=== PATIENT | female | born 1970 | race Caucasian/White ===

== ENCOUNTER 2019-11-09 12:03 | Emergency (ER) | payer OTHER, SELFPAY ==
--- NOTE | ~2019-11-09 | XR_ITS ---
XR chest 2V 11/09/2019 12:38 Indication: Chest pain Procedure: PA and lateral views of the chest Comparison: No prior studies for comparison. Findings: Left basilar atelectasis. Heart size normal. No focal pneumonia, edema, pleural effusion or pneumothorax. No acute osseous abnormality. Impression: 1: Left basilar atelectasis. Reviewed, dictated and finalized at location A. PHYSICIAN Impression: 1: Left basilar atelectasis.
--- NOTE | ~2019-11-09 | XR_ITS ---
XR hand LT min 3V 11/09/2019 12:38 INDICATION: Left hand pain PROCEDURE: 3 views left hand COMPARISON: No prior studies for comparison. FINDINGS: Fracture, dislocation or subluxation is not identified. The soft tissues appear within norm al limits. No foreign bodies are identified. IMPRESSION: 1: NO ACUTE BONE OR JOINT ABNORMALITY IDENTIFIED. Reviewed, dictated and finalized at location A. GING JEWELER
--- NOTE | 2019-11-09 12:08 | ECG_ITS ---
Measurements Intervals [place] Rate: 81 P: 14 MI: 148 QRS: -28 QRSD: 110 T: 43 QT: 388 QTc: 451 Interpretive Statements SINUS RHYTHM CANNOT RULE OUT SEPTAL INFARCT, AGE INDETERMINATE BORDERLINE T WAVE ABNORMALITY- INFERIOR LEADS BASELINE ARTIFACT- I, II, III, AVR, AVL, AVF, V1-V2 ABNORMAL ECG Electronically Signed On 11-09-2019 14:22:06 RESIDENTIAL PROGRAM MANAGER by Chas Dean D.O.
[2019-11-09 12:09] VITALS: BP 130/96; PULSE 79; RESP 18; TEMP 36.8; O2SAT 94
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
[2019-11-09 13:17] LABS: Basophils Percent Auto 0.6 % (0.2-1.2); Eosinophils Absolute Auto 0.1 K/mm3 (0-0.3); Eosinophils Percent Auto 2.5 % (0-4.4); Hemoglobin 14.6 g/dL (12.0-15.0); Immature Granulocyte Absolute 0.01 K/mm3 (0.00-0.031); Immature Granulocyte Percent A 0.2 % (0-0.5); Lymphocytes Absolute Auto 1.48 K/mm3 (0.9-3.2); Lymphocytes Percent Auto 27.9 % (18.3-44.2); Mean Corpuscular HGB Conc 32.4 g/dl (32-36); Mean Corpuscular Hemoglobin 30.7 pg (26-34); Mean Corpuscular Volume 94.5 fl (80-100); Mean Platelet Volume 11.5 fl (7.4-10.4); Monocytes Absolute Auto 0.5 K/mm3 (0.1-0.6); Monocytes Percent Auto 10.2 % (2.6-8.5); Neutrophils Absolute Auto 3.1 K/mm3 (1.3-6.7); Neutrophils Percent Auto 58.6 % (45.5-73.1); Platelet Count Result 281 k/mm3 (150-375); Red Blood Count 4.76 M/mm3 (4.2-5.4); Red Cell Distribution Width 12.9 % (11.5-14.5); White Blood Count 5.3 K/mm3 (4.5-10.0)
[2019-11-09 13:26] LABS: INR 0.9; Partial Thromboplastin Time 22.4 SECONDS (22.3-36.8); Prothrombin Time 12.1 Seconds (11.1-14.7)
[2019-11-09 13:28] LABS: Blood Urea Nitrogen 14 mg/dL (7-17); Carbon Dioxide 26 mmol/L (22-30); Chloride 99 mmol/L (98-107); Estimated CRCL calculation 105 ml/min; Estimated Glomerular Filt Rate > 60; Glucose 106 mg/dL (65-105); Potassium 3.4 mmol/L (3.4-5.0); Sodium 138 mmol/L (137-145)
[2019-11-09 13:40] LABS: Troponin I < 0.012 ng/mL (0.000-0.034)
[2019-11-09] MEDS: SODIUM CHLORIDE 0.9% IV 1,000 ML 999 ML IV CONT (14:22)
[2019-11-09 14:46] VITALS: BP 136/90; PULSE 61; RESP 16; O2SAT 98
[2019-11-09 15:52] LABS: Add Urine Microscopic? YES; Appearance Urine Cloudy (Clear); Bacteria Urine Trace /hpf; Bilirubin Urine Negative (Negative); Blood Urine Negative (Negative); Color Urine Amber (Yellow); Glucose Urine UA Negative (Negative); Hyaline Casts Urine 20-29 /lpf; Ketones Urine Trace mg/dL (Negative); Leukocyte Esterase Ur Negative LEU/UL (Negative); Mucus Urine Heavy /lpf; Nitrate Urine Negative (Negative); Protein Urine 2+ mg/dL (Negative); Squamous Epithelial Cell Urine Many /hpf (Few); WBC Urine 16-20 /hpf
[2019-11-09 16:22] LABS: Specific Grav Ur 1.034 (1.001-1.035)
[2019-11-09 16:28] LABS: Troponin I < 0.012 ng/mL (0.000-0.034)
[2019-11-09 16:58] VITALS: BP 121/79; PULSE 58; RESP 16; O2SAT 98
[2019-11-09 17:10] VITALS: BP 117/74; PULSE 62; RESP 16; O2SAT 100
== END 2019-11-09 17:42 | disposition home or self-care (01) ==
PROVIDERS: Emergency Medicine; Emergency Provider Emergency Medicine
DX: J06.9 Acute upper respiratory infection, unspecified (principal); R07.2 Precordial pain; N39.0 Urinary tract infection, site not specified; S60.022A Contusion of left index finger without damage to nail, initial encounter; Y08.89XA Assault by other specified means, initial encounter
CPT/HCPCS: 36415; 71046; 73130; 80048; 81001; 84484; 85025; 85610; 85730; 87086; 87088; 93005; 99284; J7030

== ENCOUNTER 2021-01-17 03:00 | Emergency (ER) | payer OTHER, SELFPAY ==
--- NOTE | ~2021-01-17 | CT_ITS ---
EXAMINATION: CT abdomen pelvis w con EXAM DATE: 01/17/2021 05:11 INDICATION: Low back pain, abdominal and pelvic pain. Burning dysuria. TECHNIQUE: Spiral CT of the abdomen and pelvis was performed following intravenous injection of 100 m L Omnipaque 350. Axial, coronal and sagittal images of the abdomen and pelvis were reviewed. The do se-length product (DLP) for this examination was 1505.60 mGy-cm. The exposure was tailored according to patient size (auto mA exposure control), and iterative reconstruction (ASIR) was used as addition al dose reduction technique. There is no prior study for comparison. FINDINGS: The liver, spleen, adrenal glands and pancreas are unremarkable. Gallbladder is unremarkab le. No biliary obstruction. Portal and splenic veins are patent. Kidneys enhance symmetrically. T here is no hydronephrosis. The uterus is not identified and has likely been surgically resected. T he bladder is undistended at time of imaging. There is no retroperitoneal or pelvic lymphadenopathy. The appendix is normal. There is mild sigmoid colonic diverticulosis. There is no adjacent inflammat ory change to suggest diverticulitis. The stomach and small bowel are unremarkable. There is expecte d amount of colonic stool. No free intraperitoneal gas. Borderline heart size. No pleural or arabella cardial effusion. Minimal basilar linear atelectasis. There are no osteoblastic or osteolytic lesio ns identified. IMPRESSION: 1. No acute intra-abdominal findings. 2. Mild sigmoid diverticulosis. Reviewed, dictated and finalized at location A.
[2021-01-17 03:03] VITALS: BP 143/84; PULSE 73; RESP 18; TEMP 36.7; O2SAT 97
[2021-01-17 04:00] VITALS: BP 141/84; PULSE 60; RESP 18; O2SAT 99
--- NOTE | 2021-01-17 04:10 | ED.GENADULT ---
HPI - General Adult General Chief complaint: Unspecified Stated complaint: groin,hip, lower back pain Time Seen by Provider: 01/17/21 03:47 Source: RN notes reviewed History of Present Illness HPI narrative: Patient presents emergency department from home for left lower abdominal pain. Patient states pain began 3 days ago. Pain is located left lower abdomen with radiation to the left lower back into the left leg described as aching in nature. Worse with movement. The patient states she took a meloxicam and a muscle relaxer yesterday with no relief of the pain. She states she is taken no medications today she denies any fevers or chills chest pain shortness of breath nausea vomiting diarrhea or any other symptoms denies any direct injury to the area Related Data Allergies Allergy/AdvReac Type Severity Reaction Status Date / Time levofloxacin [From Levaquin] Allergy Unknown Verified 11/09/19 12:13 [email or web address] Allergy Unknown Verified 11/09/19 12:13 Review of Systems Review of Systems: Narrative: Gen.: Denies fevers or chills Eyes: Denies eye pain or visual change ENT: Denies congestion Respiratory: Denies shortness of breath or cough CV: Denies chest pain or palpitations GI: Reports lower abdominal pain. Denies nausea, emesis or diarrhea denies burning, urgency, frequency or hematuria Musculoskeletal: See HPI Neuro: Denies numbness, tingling, weakness or focal weakness Skin: Denies rash Except as documented, all other systems reviewed and negative FORMERLY [facility], [facility]–1983 Past Medical History Medical History (Updated 01/17/21 @ 05:42 by Chacorta Escobar DO) Patient denies significant medical history Social History Social History (Updated 01/17/21 @ 04:11 by Chacorta Escobar DO) Smoking status: Never smoker Gender identity (if verbalized by the patient): Female Exam Narrative: Exam Narrative: APPEARANCE: No acute distress, nontoxic, resting in bed HEENT: Normocephalic, atraumatic, OMM RESPIRATORY: No respiratory distress, clear to auscultation bilaterally with no rhonchi wheezing or rales CARDIOVASCULAR: RRR s murmur ABDOMINAL: Soft nondistended, tender palpation left lower quadrant no tenderness left upper quadrant, right upper quadrant right lower quadrant no rebound or guarding MUSCULOSKELETAl: Moves all extremities. No clubbing, cyanosis or edema. NEURO: Awake and alert. Following commands, speech normal, no focal deficits SKIN:: Warm, dry. Normal Color PSYCHIATRIC: Normal affect/mood Course Course Emergency Course: Discussed with patient results of workup and diagnosis. Discussed need for follow-up with primary care, proper use of medication, and reasons to return to the emergency department. Patient understands and agrees to current treatment plan Vital Signs Vital signs: Vital Signs Temperature 98.0 F 01/17/21 03:03 Pulse Rate 73 01/17/21 03:03 Respiratory Rate 18 01/17/21 03:03 Blood Pressure 143/84 H 01/17/21 03:03 Pulse Oximetry 97 01/17/21 03:03 Temperature 98.0 F 01/17/21 03:03 Pulse Rate 60 01/17/21 04:00 Respiratory Rate 18 01/17/21 04:00 Blood Pressure 141/84 H 01/17/21 04:00 Pulse Oximetry 99 01/17/21 04:00 Medical Decision Making Vital Signs Vital Signs: Vital Signs Temperature 98.0 F 01/17/21 03:03 Pulse Rate 73 01/17/21 03:03 Respiratory Rate 18 01/17/21 03:03 Blood Pressure 143/84 H 01/17/21 03:03 Pulse Oximetry 97 01/17/21 03:03 Temperature 98.0 F 01/17/21 03:03 Pulse Rate 60 01/17/21 04:00 Respiratory Rate 18 01/17/21 04:00 Blood Pressure 141/84 H 01/17/21 04:00 Pulse Oximetry 99 01/17/21 04:00 Lab Data Result diagrams: 01/17/21 04:20 01/17/21 04:20 Labs: Lab Results 01/17/21 01/17/21 01/17/21 Range/Units 04:20 04:20 04:20 WBC 5.2 (4.5-10.0) K/mm3 RBC 4.42 (4.2-5.4) M/mm3 Hgb 14.0 (12.0-15.0) g/dL Hct 41.8 (37.0-47.0) % MCV 94.6 (80-100) fl MCH
[2021-01-17] MEDS: KETOROLAC 30 MG/ML VIAL (*BKC) IV PUSH (04:26)
[2021-01-17 04:32] LABS: Basophils Percent Auto 0.8 % (0.2-1.2); Eosinophils Absolute Auto 0.2 K/mm3 (0-0.3); Hematocrit 41.8 % (37.0-47.0); Lymphocytes Absolute Auto 1.61 K/mm3 (0.9-3.2); Lymphocytes Percent Auto 30.8 % (18.3-44.2); Mean Corpuscular HGB Conc 33.5 g/dl (32-36); Mean Corpuscular Hemoglobin 31.7 pg (26-34); Mean Corpuscular Volume 94.6 fl (80-100); Mean Platelet Volume 10.9 fl (7.4-10.4); Monocytes Absolute Auto 0.7 K/mm3 (0.1-0.6); Monocytes Percent Auto 12.5 % (2.6-8.5); Neutrophils Absolute Auto 2.7 K/mm3 (1.3-6.7); Neutrophils Percent Auto 51.9 % (45.5-73.1); Platelet Count Result 239 k/mm3 (150-375); Red Blood Count 4.42 M/mm3 (4.2-5.4); Red Cell Distribution Width 13.3 % (11.5-14.5); White Blood Count 5.2 K/mm3 (4.5-10.0)
[2021-01-17 04:39] LABS: Add Urine Microscopic? YES; Appearance Urine Cloudy (Clear); Bacteria Urine Trace /hpf; Bilirubin Urine Negative (Negative); Blood Urine Negative (Negative); Color Urine Yellow (Yellow); Glucose Urine UA Negative (Negative); Ketones Urine Trace mg/dL (Negative); Leukocyte Esterase Ur Trace LEU/UL (Negative); Mucus Urine Moderate /lpf; Nitrate Urine Negative (Negative); Protein Urine 1+ mg/dL (Negative); RBC Urine 0-2 /hpf (0-2); Squamous Epithelial Cell Urine Many /hpf (Few); Urobilinogen Urine Negative mg/dL (<2.0)
[2021-01-17 04:46] LABS: Alanine Aminotransferase 18 U/L (4-35); Alkaline Phosphatase 65 U/L (38-126); Anion Gap 5 mmol/L (8-16); Aspartate Amino Transferase 23 U/L (14-36); Bilirubin,Total 0.8 mg/dL (0.2-1.3); Blood Urea Nitrogen 16 mg/dL (7-17); Carbon Dioxide 30 mmol/L (22-30); Chloride 104 mmol/L (98-107); Estimated Glomerular Filt Rate > 60; Glucose 101 mg/dL (65-105); Lipase 80 U/L (23-300); Potassium 3.5 mmol/L (3.4-5.0); Sodium 139 mmol/L (137-145)
[2021-01-17 05:50] VITALS: BP 148/78; PULSE 66; RESP 18; O2SAT 100
== END 2021-01-17 05:50 | disposition home or self-care (01) ==
PROVIDERS: Emergency Provider Emergency Medicine; PCP Family Medicine
DX: N39.0 Urinary tract infection, site not specified (principal); M54.5 Low back pain
CPT/HCPCS: 36415; 74177; 80053; 81001; 83690; 85025; 87086; 87088; 87147; 96374; 99284; J1885; Q9967